=== PATIENT | male | born 1955 | race Caucasian/White ===

== ENCOUNTER 2016-11-06 11:51 | Day surgery (SDC) | payer BC ==
[~2016-11-06] VITALS: Ht 170.2 cm; Wt 70.8 kg
[2016-11-06 13:05] VITALS: Ht 170.2 cm; Wt 70.8 kg
[2016-11-06] MEDS ORDERED: TAMSULOSIN (13:14)
[2016-11-06] MEDS ORDERED: CENTRUM (13:14)
[2016-11-06] MEDS ORDERED: VITAMINS (13:14)
[2016-11-06] MEDS ORDERED: FISH OIL (13:14)
[2016-11-06] MEDS ORDERED: LIDOCAINE 2% (SDV) 5 ML INJ ONE (13:54)
[2016-11-06] MEDS ORDERED: PROPOFOL 80 ML ONE (13:54)
[2016-11-06 14:03] VITALS: BP 132/73; PULSE 61; RESP 14
[2016-11-06 14:42] VITALS: BP 102/59; PULSE 54; RESP 18
--- NOTE | 2016-11-06 21:27 | GILP ---
DATE OF PROCEDURE: NAME OF PROCEDURE: Colonoscopy to cecum. SURGEON: Leonel Polanco MD. HISTORY AND INDICATIONS: The patient is being evaluated for colorectal cancer screening. PREMEDICATION: Monitored anesthesia care by anesthesiologist. INSTRUMENT USED: Olympus colonoscope. PREPARATION: Adequate. TECHNIQUE: After informed consent, with the patient/relatives understanding the procedure, its indic ations potential risks and complications, including but not limited to: allergic reaction, bleeding, perforation, infection, missed lesions, and after all pertinent questions were answered to the tara ent's satisfaction, the patient/relatives signed the witnessed informed consent. Following this, premedication was administered slowly IV push by under careful cardiovascular and re spiratory monitoring with pulse oximetry, automatic blood pressure and threat monitoring analyst. Once the sedati ve effect was achieved, the patient was placed in the left lateral decubitus position, digital recta l examination was performed. The colonoscope was then introduced and advanced under visual control throughout all segments of the colon including: the rectum, sigmoid, descending colon, splenic flexu re, transverse colon, hepatic flexure, ascending colon and finally reaching the cecum which was juancarlos rly identified by transillumination, finger indentation and the ileocecal valve. Careful examinatio n of the mucosa of the lower gastrointestinal tract both on insertion as well as withdrawal of the i nstrument disclosed the following findings: Rectal Examination: No evidence of perirectal disease, no masses. Colonic Mucosa: The colonic mucosa is unremarkable throughout. The ileocecal valve was clearly sincere ntified and appears unremarkable. The instrument was withdrawn reexamining the mucosa in detail. N o additional abnormalities are noted with exception of moderate sized internal hemorrhoids. The instrument was then withdrawn, the patient tolerated the procedure well and was transferred out of the [facility]oscopy Suite awake and in good condition to continue recovery under observation. IMPRESSION: 1. Normal mucosa to cecum. 2. Moderate size internal hemorrhoids. PLAN: Annual Hemoccult stool testing. Screening colonoscopy in 10 years. Dictated By: LEONEL POLANCO MS/FERNANDA Conf#: [id number] DID#: [id number] CC: LEONEL POLANCO;*EndCC*
== END 2016-11-06 15:24 | disposition home or self-care (01) ==
LOC: GIL 11:51
PROVIDERS: ATTEND Internal Medicine Gastroenterology
DX: Z12.11 Encounter for screening for malignant neoplasm of colon (principal); K64.8 Other hemorrhoids; Z87.891 Personal history of nicotine dependence
CPT/HCPCS: 45378; Z7610